=== PATIENT | male | born 1965 | race Caucasian/White ===

== ENCOUNTER 2017-08-08 13:00 | Observation (INO) | payer OTHER ==
[~2017-08-08] VITALS: Ht 165.1 cm; Wt 120.3 kg
[~2017-08-08 13:00] MED LIST: PHEN37.585 PO
[2017-08-08] MEDS ORDERED: SODIUM CHLORIDE 0.9% 1000ML 1,000 ML IV STA (13:27)
[2017-08-08 13:53] LABS: BASO % 0.4 %; BASO ABS # 0.03 K/uL (0-0.2); EOS ABS # 0.08 K/uL (0-0.5); HEMATOCRIT 40.2 % (42-52); HEMOGLOBIN 14.5 g/dL (14.0-18.0); IG# 0.03 K/uL (0.00-0.02); LYMPH % 26.7 %; LYMPH ABS # 2.08 K/uL (1.2-3.4); MEAN CELL VOLUME 94.6 fL (80-100); MEAN CORPUSCULAR HEMOGLOBIN 34.1 pg (25-34); MEAN CORPUSCULAR HGB CONC 36.1 g/dl (32-36); MEAN PLATELET VOLUME 10.6 fL (7.4-10.4); MONO % 5.9 %; MONO ABS # 0.46 K/uL (0.11-0.59); NEUT % 65.6 %; PLATELET COUNT 183 K/uL (130-400); RED CELL DISTRIBUTION WIDTH CV 12.7 % (11.5-14.5); RED CELL DISTRIBUTION WIDTH SD 43.3 fL (36.4-46.3); WHITE BLOOD COUNT 7.78 K/uL (4.8-10.8)
--- NOTE | 2017-08-08 13:56 | EMERGENCY ROOM VISIT NOTE ---
ED Visit Note First contact with patient: 13:15 I have seen and examined this patient with Pipe Hernandez and generally agree with the treatment plan as discussed.
[2017-08-08 14:11] LABS: ALBUMIN 3.9 gm/dl (3.4-5.0); ALT/SGPT 17 U/L (12-78); AST/SGOT 10 U/L (15-37); BLOOD UREA NITROGEN 16 mg/dl (7-18); CALCIUM 9.1 mg/dl (8.5-10.1); CARBON DIOXIDE 27 mmol/L (21-32); CREATININE 1.68 mg/dl (0.60-1.40); GLUCOSE 135 mg/dl (70-99); LIPASE 168 U/L (73-393); POTASSIUM 3.1 mmol/L (3.5-5.1); SODIUM 133 mmol/L (136-145)
[2017-08-08 14:13] LABS: ALKALINE PHOSPHATASE 91 U/L (45-117); TOTAL PROTEIN 7.7 gm/dl (6.4-8.2)
[2017-08-08] MEDS ORDERED: OPTIRAY 320 IV PRN (14:15)
--- NOTE | 2017-08-08 15:26 | DIAGNOSTIC IMAGING REPORT ---
CT OF THE ABDOMEN AND PELVIS WITH CONTRAST CLINICAL HISTORY: Umbilical pain with tenderness and swelling. COMPARISON STUDY: None. TECHNIQUE: Following IV administration of 70 mL of Optiray-320, axial images of the abdomen and pelvis were obtained from the lung bases to the proximal femurs. Images were reviewed in the axial, sagittal, and coronal planes. IV contrast was administered without complication. A dose lowering technique was utilized adhering to the principles of ALARA. CT DOSE: 1532.18 mGy.cm FINDINGS: Lunchroom Aide image demonstrates a possible 4.3 cm lobulated density within the right midlung. There is probable fatty infiltration of the liver. There is no biliary or pancreatic ductal dilatation. Note is made of a 1.3 cm cyst within the upper pole of the left kidney. There is no hydronephrosis. The spleen, adrenal glands and pancreas are normal. There is no evidence for a bowel obstruction. The appendix is normal. Note is made of a fat-containing umbilical hernia. There is moderate associated inflammation and fluid within the herniated omentum. No suspicious osseous lesions are present. There is no lymphadenopathy. IMPRESSION: 1. Findings consistent with an omentum/fat-containing strangulated umbilical hernia. Moderate inflammation and fluid of the herniated fat. 2. Possible 4.3 cm lobulated density within the right midlung. Follow-up PA and lateral chest radiographs are recommended. Findings discussed with Pipe Hernandez at time of dictation. Electronically signed by: Tyson Rene M.D. 08/08/2017 3:25 PM Dictated Date/Time: 08/08/2017 3:14 PM
--- NOTE | 2017-08-08 16:41 | DIAGNOSTIC IMAGING REPORT ---
CHEST 2 VIEWS ROUTINE HISTORY: Preop. COMPARISON: Abdomen and pelvis CT 08/08/2017. FINDINGS: 5.1 x 2.4 cm masslike opacity within the right upper lobe anteriorly. Mild volume loss within the right hemithorax. The left lung is clear. The heart is borderline enlarged. Posterior fusion hardware seen within the thoracic spine with old compression deformities within the mid thoracic spine. No pleural effusions. No pneumothorax. IMPRESSION: Confirmation of the 5.1 x 2.4 cm masslike opacity within the right upper lobe. This is concerning for a pulmonary lesion. Dedicated chest CT is recommended for further evaluation. Electronically signed by: Emerson Ramirez M.D. 08/08/2017 4:40 PM Dictated Date/Time: 08/08/2017 4:36 PM
[2017-08-08] MEDS ORDERED: LIDOCAINE HCL 2% 2 ML VIAL (20MG/ML) ONE (17:05)
[2017-08-08] MEDS ORDERED: GLYCOPYRROLATE INJ 0.2 MG/ML VIAL ONE ×2 (17:05→18:15)
[2017-08-08] MEDS ORDERED: ROCURONIUM BROMIDE 10 MG/ML 5 ML VIAL IV ONE (17:05)
[2017-08-08] MEDS ORDERED: PROPOFOL IV EMULSION 10 MG/ML 20 ML VIAL IV ONE (17:05)
[2017-08-08] MEDS ORDERED: NEOSTIGMINE METHYLSULFATE 5 MG/5 ML SYR ONE (17:05)
[2017-08-08] MEDS ORDERED: MIDAZOLAM HCL 1 MG/ML 2ML VIAL ONE (17:16)
[2017-08-08] MEDS ORDERED: FENTANYL CITRATE INJ 50 MCG/1 ML 2 ML VIAL ONE ×2 (17:16→18:05)
[2017-08-08] MEDS ORDERED: ATROPINE SULFATE 0.1 MG/ML 5ML SYR IV PRN (17:30)
[2017-08-08] MEDS ORDERED: FENTANYL CITRATE INJ 50 MCG/1 ML 2 ML VIAL IV PRN (17:30)
[2017-08-08] MEDS ORDERED: EpHEDrine SULFATE INJ 50 MG/ML AMP IV PRN (17:30)
[2017-08-08] MEDS ORDERED: ONDANSETRON INJ 2 MG/ML 2 ML VIAL IV PRN ×2 (17:30→19:00)
[2017-08-08] MEDS ORDERED: CEFAZOLIN SOD 2000MG/15 ML IV PUSH IV ONE (17:30)
--- NOTE | 2017-08-08 17:44 | Surgery Consultation ---
Consultation Date of Consultation: Aug 08, 2017. Attending Physician: History of Present Illness Chief Complaint: Abdominal pain. History of Present Illness: Mr. Zepeda is a 52 year-old white male who ambulates into the ED complaining of umbilical abdominal pain. Historically patient reports no gastrointestinal disorders or abdominal surgeries. Patient does report he has incomplete T3-T5 paraplegia with numbness starting at the nipple line to his feet. Patient reports a acute onset of umbilical abdominal pain that started approximately 16 hours ago. Patient reports last evening he was walking through his yard and felt a tearing sensation in the umbilical area. Since that time he reports he has been having a burning sensation in the abdomen. His pain has been constant since its onset. He rates his discomfort 7/10. His pain is nonradiating. He has not identified any aggravating or alleviating factors related to the pain. He has not taken any medication for pain prior to arrival at the hospital. Associated with his pain he has noted swelling within the umbilicus. He was referred to the ED by his PCP to evaluate for his symptoms. He denies any associated fevers, chills, sweats, skin eruptions, skin color changes, upper respiratory tract symptoms, shortness of breath, chest pain, nausea, vomiting, diarrhea, constipation, rectal bleeding, black/tarry stools, urinary symptoms, hematuria, back/flank pain. Review of Systems: As noted above in history of present illness. All body systems were reviewed and found to be negative as noted above. Past Medical History: As previously noted, unspecified urinary problems, thoracic back surgery and osteomyelitis. Current Medications: Patient denies. Allergies to Medications: Patient denies. Social History: Patient is not employed; he feels safe in his home environment; he denies tobacco and alcohol use. I reviewed pt 's H/P with pt, I agree with above statement. pt is still have periumbilical pain, with bulging , the mass is not reducible, pt denies fever, no diarrhea, Social History Smoking Status: Never Smoker Smokeless Tobacco Use: No Alcohol Use: occasionally Drug Use: none Allergies Coded Allergies: No Known Allergies (Unverified , 08/08/17) Home Medications Unable to Obtain Active Prescriptions or Reported Meds Current Inpatient Medications Current Inpatient Medications Medications (Trade) Dose Ordered Sig/Arlen Route Start Time Stop Time Status Last Admin Dose Admin Sodium Chloride 1,000 ml @ 200 mls/hr Q5H STAT IV 08/08/17 13:27 08/08/17 18:26 08/08/17 13:42 200 MLS/HR Ioversol (Optiray 320) 125 ml UD PRN IV 08/08/17 14:15 08/12/17 14:14 Fentanyl Citrate (Fentanyl Inj) 50 mcg Q5M PRN IV 08/08/17 17:30 08/08/17 22:30 Ondansetron HCl (Zofran Inj) 4 mg ONE PRN IV 08/08/17 17:30 08/08/17 22:30 Ephedrine Sulfate (EpHEDrine SULFATE INJ) 5 mg Q5M PRN IV 08/08/17 17:30 08/08/17 22:30 Atropine Sulfate (Atropine Sulfate 0.1mg/ml Inj) 0.5 mg Q1M PRN IV 08/08/17 17:30 08/08/17 22:30 Review of Systems Constitutional: No fever, No chills, No sweats, No weight loss, No weakness, No fatigue, No problem reported Eyes: No worsening of vision, No eye pain, No redness, No discharge, No diplopia, No problem reported ENT: No hearing loss, No unusual epistaxis, No nasal symptoms, No sore throat, No tinnitus, No dental problems, No trouble swallowing, No problem reported Respiratory: No cough, No sputum, No wheezing, No shortness of breath, No dyspnea on exertion, No dyspnea at rest, No hemoptysis, No problem reported Cardiovascular: No chest pain, No orthopnea, No PND, No edema, No claudication , No palpitations, No problem reported Abdomen: + pain, + nausea Musculoskeletal: + problem reported (incomplete T3-T5 paraplegia with numbness starting at the nipple line to his feet.) Genitourinary - Male: No hematuria, No dysuria, No urinary frequency, No urinary urgency, No urinary hesitancy, No urinary retention, No urinary incontinence, No penile discharge, No lesions, No impotence, No problem reported Neurologic: + problem reported (incomplete T3-T5 paraplegia with numbness starting at the nipple line to his feet.) Endocrine: No fatigue, No excessive thirst, No excessive urination, No problem reported Hematologic / Lymphatic: No abnormal bleeding/bruising, No clotting problems, No swollen lymph nodes, No night sweats, No problem reported Integumentary: No rash, No itch, No new/changing skin lesions, No color change , No bleeding, No problem reported Physical Exam Date Time Temp Pulse Resp B/P (MAP) Pulse Ox O2 Delivery O2 Flow Rate FiO2 08/08/17 17:26 36.5 83 16 155/97 (116) 97 Room Air 08/08/17 17:02 76 08/08/17 16:28 81 18 159/97 97 Room Air 08/08/17 13:44 82 20 164/101 95 08/08/17 13:41 83 08/08/17 13:11 37.1 90 16 143/90 97 Room Air General Appearance: WD/WN, no apparent distress Head: normocephalic Eyes: normal inspection ENT: normal ENT inspection Neck: supple, no JVD Respiratory/Chest: chest non-tender, lungs clear, normal breath sounds, no respiratory distress Cardiovascular: regular rate, rhythm, no edema, no gallop, no JVD, no murmur Abdomen/GI: normal bowel sounds, + tenderness (at umbilical area, some redness on skin color), + hernia (incarcerated umbilical hernai, which is not reducible , ) Extremities/Musculoskelatal: normal inspection, no calf tenderness, + pertinent finding (weakness on bilt legs) Neurologic/Psych: no motor/sensory deficits, alert, normal mood/affect, oriented x 3 Skin: normal color, warm/dry, no rash Laboratory Results Last 24 Hours Test 08/08/17 13:40 08/08/17 14:55 White Blood Count 7.78 K/uL Red Blood Count 4.25 M/uL Hemoglobin 14.5 g/dL Hematocrit 40.2 % Mean Corpuscular Volume 94.6 fL Mean Corpuscular Hemoglobin 34.1 pg Mean Corpuscular Hemoglobin Concent 36.1 g/dl Platelet Count 183 K/uL Mean Platelet Volume 10.6 fL Neutrophils (%) (Auto) 65.6 % Lymphocytes (%) (Auto) 26.7 % Monocytes (%) (Auto) 5.9 % Eosinophils (%) (Auto) 1.0 % Basophils (%) (Auto) 0.4 % Neutrophils # (Auto) 5.10 K/uL Lymphocytes # (Auto) 2.08 K/uL Monocytes # (Auto) 0.46 K/uL Eosinophils # (Auto) 0.08 K/uL Basophils # (Auto) 0.03 K/uL RDW Standard Deviation 43.3 fL RDW Coefficient of Variation 12.7 % Immature Granulocyte % (Auto) 0.4 % Immature Granulocyte # (Auto) 0.03 K/uL Sodium Level 133 mmol/L Potassium Level 3.1 mmol/L Chloride Level 101 mmol/L Carbon Dioxide Level 27 mmol/L Anion Gap 5.0 mmol/L Blood Urea Nitrogen 16 mg/dl Creatinine 1.68 mg/dl Est Creatinine Clear Calc Drug Dose 61.2 ml/min Estimated GFR () 53.0 Estimated GFR (Non- 45.7 BUN/Creatinine Ratio 9.6 Random Glucose 135 mg/dl Calcium Level 9.1 mg/dl Total Bilirubin 0.5 mg/dl Direct Bilirubin < 0.1 mg/dl Aspartate Amino Transf (AST/SGOT) 10 U/L Alanine Aminotransferase (ALT/SGPT) 17 U/L Alkaline Phosphatase 91 U/L Total Protein 7.7 gm/dl Albumin 3.9 gm/dl Lipase 168 U/L Urine Color YELLOW Urine Appearance CLEAR Urine pH 7.0 Urine Specific [place] 1.012 Urine Protein NEG Urine Glucose (UA) NEG Urine Ketones NEG Urine Occult Blood NEG Urine Nitrite NEG Urine Bilirubin NEG Urine Urobilinogen NEG Urine Leukocyte Esterase NEG Assessment & Plan CT scan-FINDINGS: Gifted Program Teacher image demonstrates a possible 4.3 cm lobulated density within the right midlung. There is probable fatty infiltration of the liver. There is no biliary or pancreatic ductal dilatation. Note is made of a 1.3 cm cyst within the upper pole of the left kidney. There is no hydronephrosis. The spleen, adrenal glands and pancreas are normal. There is no evidence for a bowel obstruction. The appendix is normal. Note is made of a fat-containing umbilical hernia. There is moderate associated inflammation and fluid within the herniated omentum. No suspicious osseous lesions are present. There is no lymphadenopathy. IMPRESSION: 1. Findings consistent with an omentum/fat-containing strangulated umbilical hernia. Moderate inflammation and fluid of the herniated fat. 2. Possible 4.3 cm lobulated density within the right midlung. Follow-up PA and lateral chest radiographs are recommended. Findings discussed with Pipe Hernandez at time of dictation. Assessment: pt is a 52 nikkie old male who presents to ER with 17 hours periumbilical pain, CT scan- incarcerated umbilical hernia, IMP: incarcerated umbilical hernia Plan: I recommend to do open repair umbilical hernia, possible with mesh, D/W benefits, risk and alternatives of the procedure, the risks -infection, bleeding , hernia recurrence, complications relate to mesh, DVT, SC, stroke , pt understood, he agrees with [facility], I answered all questions,
--- NOTE | 2017-08-08 17:45 | History & Physical Bridge Note ---
H&P Re-Evaluation Bridge Note: I have examined the patient, reviewed the History & Physical and in the interval since the performance of the History & Physical I have noted the following changes of clinical significance: No changes noted
[2017-08-08] MEDS ORDERED: BUPIVACAINE 0.5 % 5 MG/1 ML MPF 30ML VIAL ONE (18:09)
[2017-08-08] MEDS ORDERED: LIDOCAINE HCL 1% 20 ML VIAL ONE (18:10)
[2017-08-08] MEDS ORDERED: BACITRACIN OINT 15 GM TUBE ONE (18:10)
[2017-08-08] MEDS ORDERED: DEXAMETHASONE SOD INJ 4 MG/ML VIAL ONE (18:13)
[2017-08-08] MEDS ORDERED: ONDANSETRON INJ 2 MG/ML 2 ML VIAL ONE (18:13)
--- NOTE | 2017-08-08 18:57 | [facility] Post Operative Brief Note ---
Immediate Operative Summary Operative Date Aug 08, 2017. Pre-Operative Diagnosis incarcerated umbilical hernia Post-Operative Diagnosis same Procedure(s) Performed open repair of incarcerated umbilical hernia, with mesh Surgeon Dr. Eleno Esposito Nursing Tech Surgeon(s) surgical consultant Estimated Blood Loss 10ml Findings Consistent with Post-Op Diagnosis incarcerated umbilical hernia, hernia size is 2x2cm, Fluids (cc crystalloids) 600ml Specimens A. umbilical hernia sac (permanent) Drains None Anesthesia Type General Complication(s) none Disposition Accompanied Pt To Recover: yes Disposition: Recovery Room / PACU
[2017-08-08] MEDS ORDERED: OXYCODONE/ACETAMINOPHEN 5-325 TAB PO PRN (19:00)
[2017-08-08] MEDS ORDERED: HYDROmorphone INJ 2 MG/ML SYR/VIAL IV PRN (19:00)
[2017-08-08] MEDS ORDERED: ACETAMINOPHEN 325 MG TAB PO PRN (19:00)
[2017-08-08] MEDS ORDERED: IV FLUIDS COMPLETED PRN (19:15)
--- NOTE | 2017-08-08 19:42 | Anesthesiology Progress Note ---
Anesthesia Post Op Note Date & Time Aug 08, 2017 at 19:41 Vital Signs Pain Intensity: 4 Vital Signs Past 12 Hours Date Time Temp Pulse Resp B/P (MAP) Pulse Ox O2 Delivery O2 Flow Rate FiO2 08/08/17 19:35 81 16 127/93 92 Nasal Cannula 2 08/08/17 19:25 81 25 127/82 99 Oxymask 10 08/08/17 19:15 36.2 87 17 146/90 99 Oxymask 10 08/08/17 17:26 36.5 83 16 155/97 (116) 97 Room Air 08/08/17 17:02 76 08/08/17 16:28 81 18 159/97 97 Room Air 08/08/17 13:44 82 20 164/101 95 08/08/17 13:41 83 08/08/17 13:11 37.1 90 16 143/90 97 Room Air Notes Mental Status: alert / awake / arousable, participated in evaluation Pt Amnestic to Procedure: Yes Nausea / Vomiting: adequately controlled Pain: adequately controlled Airway Patency, RR, SpO2: stable & adequate BP & HR: stable & adequate Hydration State: stable & adequate Anesthetic Complications: see attached progress note
--- NOTE | 2017-08-08 19:49 | Anesthesiology Progress Note ---
Anesthesia Progress Note Date of Service Aug 08, 2017. Progress Notes The patient underwent an incarcerated hernia repair under general anesthesia. The patient was known to have poor dentition and multiple broken teeth. During insertion of the Archie blade, part of his L front tooth was broken. The tooth fragment was retrieved. The rest of his kassy-operative course was uneventful. When the patient was more awake in the PACU, I spoke with the patient about his tooth being broken during intubation. The patient was aware of his poor dentition and was not upset. The patient was otherwise stable for discharge to the floor.
[2017-08-08 20:00] VITALS: BP 144/90; PULSE 70; TEMP 36.7; O2SAT 94; Ht 165.1 cm; Wt 120.3 kg
[2017-08-08] MEDS ORDERED: D5W AND 1/2NSS + 20MEQ KCL 1,000 ML IV SCH (20:30)
[2017-08-08 20:42] VITALS: BP 145/98; PULSE 72; TEMP 36.6; O2SAT 94
[2017-08-08 21:15] VITALS: BP 146/96; PULSE 78; TEMP 36.7; O2SAT 96
[2017-08-08] MEDS: CEFAZOLIN IV 2,000 MG in SYRINGE 0 ML IV SCH (21:18)
--- NOTE | 2017-08-08 21:42 | OPERATIVE REPORT ---
DATE OF OPERATION: 08/08/2017 PREOPERATIVE DIAGNOSIS: Incarcerated umbilical hernia. POSTOPERATIVE DIAGNOSIS: Same. PROCEDURE: Open repair of incarcerated umbilical hernia with mesh. SURGEON: Roseann Esposito MD ANESTHESIA: General. ESTIMATED BLOOD LOSS: About 10 mL. FINDINGS: Incarcerated umbilical hernia. The hernia size is about 2 x 2 cm. COMPLICATIONS: None. INDICATIONS FOR THE PROCEDURE: This is a 52-year-old gentleman who presented to the ED with 17 hours of umbilical pain with bulging mass and the patient was diagnosed as incarcerated umbilical hernia. Patient required open repair of umbilical hernia, possibly with mesh. I did talk to patient about benefits, risks, and alternatives to procedure. I indicated the risks may include, but not limited, such as bleeding, infection, hernia recurrence, myocardial infarction, DVT, stroke, even , seroma. Patient understands. He signed informed consent and I answered all questions. DETAILS OF PROCEDURE: We brought the patient to the OR and put the patient on the supine position. Patient received SCDs on bilateral legs to prevent DVT. Also, patient received 2 grams Ancef IV for prophylactic antibiotics. Patient received general anesthesia without difficulty. The patient's abdomen was prepped and draped in routine sterile fashion. After time-out, I made a small incision just below the umbilicus and reached to the fascial layer. Patient had incarcerated umbilical hernia. The hernia is not reducible at this moment. Once we opened the hernia neck and then completely mobilized the umbilicus, we completely removed the hernia sac and returned the hernia contents and the omental fat back to abdominal cavity. No necrosis on the omental fat. Then once we removed the umbilical hernia sac and resized the hernia neck about 2 x 2 cm, I decided to use 4.3 x 4.3 cm mesh to repair the hernia. Then I used a #1 Ethibond to suture the mesh around 360 degrees intraoperatively. I tied off the suture. The mesh seated nicely, no tension. Hemostasis was obtained. We closed the subcutaneous layer by using 2-0 Vicryl interruptedly. We closed skin by using staple and we put a dressing on. The patient tolerated the procedure well. All the instrument, needle, and sponge counts were correct x2 at the end of the case. The hernia sac was sent to pathology. After procedure, the patient transferred to recovery room in stable condition. After procedure, I did talk to patient's family member, patient's brother, about OR findings and the procedure we did. He understands. Also, after procedure we did an injection of local anesthesia medication by using 1% lidocaine mixed with 0.5% Marcaine around the incision. I attest to the content of the Intraoperative Record and any orders documented therein. Any exceptions are noted below. DEJUAN
[2017-08-08] MEDS ORDERED: NURSING VERBAL MED ORDER ONE (22:00)
[2017-08-08] MEDS ORDERED: OXYCODONE HCL IR 5 MG TAB (IMMEDIATE RELEASE) ONE (22:01)
[2017-08-08 22:11] VITALS: BP 137/90; PULSE 77; TEMP 36.8; O2SAT 94
[2017-08-08] MEDS ORDERED: OXYCODONE HCL IR 5 MG TAB (IMMEDIATE RELEASE) PO PRN (22:15)
[2017-08-08 22:59] VITALS: BP 131/85; PULSE 85; TEMP 36.6; O2SAT 93
[2017-08-09 03:34] VITALS: BP 114/74; PULSE 74; TEMP 36.4; O2SAT 96
[2017-08-09] MEDS ORDERED: CEFAZOLIN SOD 2000MG/15 ML IV PUSH IV ONE (06:00)
[2017-08-09] MEDS: CEFAZOLIN IV 2,000 MG in SYRINGE 0 ML IV SCH (06:10)
[2017-08-09] MEDS ORDERED: NURSING VERBAL MED ORDER ONE (06:30)
[2017-08-09 06:58] LABS: BASO % 0.1 %; BASO ABS # 0.01 K/uL (0-0.2); HEMATOCRIT 44.1 % (42-52); IG# 0.05 K/uL (0.00-0.02); LYMPH % 14.7 %; LYMPH ABS # 2.21 K/uL (1.2-3.4); MEAN CELL VOLUME 95.2 fL (80-100); MEAN CORPUSCULAR HEMOGLOBIN 34.6 pg (25-34); MEAN CORPUSCULAR HGB CONC 36.3 g/dl (32-36); MEAN PLATELET VOLUME 11.3 fL (7.4-10.4); MONO % 2.7 %; MONO ABS # 0.41 K/uL (0.11-0.59); NEUT % 82.2 %; NEUT ABS # 12.33 K/uL (1.4-6.5); PLATELET COUNT 253 K/uL (130-400); RED CELL DISTRIBUTION WIDTH CV 12.7 % (11.5-14.5); RED CELL DISTRIBUTION WIDTH SD 43.5 fL (36.4-46.3); WHITE BLOOD COUNT 15.01 K/uL (4.8-10.8)
[2017-08-09 07:07] LABS: INR 0.9 (0.9-1.1); PTT PATIENT 24.7 SECONDS (21.0-31.0)
[2017-08-09 07:40] VITALS: O2SAT 96
[2017-08-09] MEDS ORDERED: GABAPENTIN 100 MG CAP PO SCH (08:00)
[2017-08-09] MEDS ORDERED: BACLOFEN 10 MG TAB PO SCH (08:00)
[2017-08-09 08:01] VITALS: BP 146/85; PULSE 92; TEMP 36.7; O2SAT 92
[2017-08-09] MEDS ORDERED: POTASSIUM CHLORIDE 10 MEQ TABCR PO ONE ×2 (08:15)
[2017-08-09] MEDS ORDERED: OXYC-57 PO (08:29)
--- NOTE | 2017-08-09 08:37 | Discharge Instructions ---
Discharge Instructions Date of Service Aug 09, 2017. Admission Reason for Admission: Incarcerated Umbilical Hernia Discharge Discharge Diagnosis / Problem: same Discharge Goals Goal(s): Decrease discomfort, Improve function Activity Recommendations Activity Limitations: per Instructions/Follow-up section No heavy lifting over 10 pounds for 4-6 weeks No strenuous activity until cleared by surgeon No submerging incision underwater for 2 weeks (no bathing, swimming, or hot tubs ) No driving while taking narcotic pain medication or until you are pain free . Instructions / Follow-Up Instructions / Follow-Up You may shower in 3 days, sponge bath and wash hair in meantime. Leave dressing on for 3 days and then remove. Try to keep dressing clean and dry. After 3 days, remove outer dressing and shower. You have surgical helga on incision, cover daily with small bandage. Helga can get caught on clothing. Wear abdominal binder daily for support, you may take it off at bedtime if you wish. You will be given narcotic pain medication to take as needed for moderate to severe pain. This medication may make you drowsy and can cause constipation. To combat constipation, drink plenty of water, you may take OTC stool softener such as Colace, gentle laxative, or prune juice if needed. You may take extra strength Tylenol or Ibuprofen as needed for mild pain. Follow-up in surgical office in 1-2 weeks, please call office at [phone] to make an appointment. You need to follow-up with your PCP in 1 week, there was a finding of a 4.3 cm density in your right mid lung on CT scan of the abdomen and Chest xray in which further evaluation with Chest CT scan was recommended. Recommend following up with Dentist in regards to tooth loss. Current Hospital Diet Patient's current hospital diet: Full Liquid Diet Discharge Diet Recommended Diet: Regular Diet Procedures Procedures Performed: open repair of incarcerated umbilical hernia, with mesh Pending Studies Studies pending at discharge: no Medical Emergencies . Who to Call and When: Medical Emergencies: If at any time you feel your situation is an emergency, please call 911 immediately. . Non-Emergent Contact Non-Emergency issues call your: Primary Care Provider, Surgeon Call Non-Emergent contact if: you have a fever, temperature is above 101, your pain is not controlled, your pain is worsening, your pain is unusual for you, wound has increased drainage, wound has increased redness, wound has increased pain . "Provider Documentation" section prepared by Doretha Jenkins. . [place] Drug Monitoring Program Search Results: patient reviewed within database, no issues identified
[2017-08-09 08:40] LABS: ALBUMIN 3.7 gm/dl (3.4-5.0); CALCIUM 8.8 mg/dl (8.5-10.1); CREATININE 1.88 mg/dl (0.60-1.40); POTASSIUM 3.6 mmol/L (3.5-5.1)
--- NOTE | 2017-08-09 08:41 | Anesthesiology Progress Note ---
Anesthesia Post Op Note Date & Time Aug 09, 2017 at 08:39 Vital Signs Pain Intensity: 7.0 Vital Signs Past 12 Hours Date Time Temp Pulse Resp B/P (MAP) Pulse Ox O2 Delivery O2 Flow Rate FiO2 08/09/17 08:01 36.7 92 16 146/85 (105) 92 Room Air 08/09/17 07:40 96 Room Air 08/09/17 03:34 36.4 74 20 114/74 (87) 96 Room Air 08/08/17 23:05 Room Air 08/08/17 22:59 36.6 85 18 131/85 (100) 93 Room Air 08/08/17 22:11 36.8 77 18 137/90 (106) 94 Nasal Cannula 2.0 08/08/17 21:15 36.7 78 18 146/96 (113) 96 Room Air 08/08/17 20:42 36.6 72 18 145/98 (114) 94 Nasal Cannula 2.0 Notes Mental Status: alert / awake / arousable, participated in evaluation Pt Amnestic to Procedure: Yes Nausea / Vomiting: adequately controlled Pain: adequately controlled Airway Patency, RR, SpO2: stable & adequate BP & HR: stable & adequate Hydration State: stable & adequate Anesthetic Complications: no major complications apparent Patient states he has 2 missing teeth post-anesthesia....will follow-up.
[2017-08-09 08:44] LABS: TOTAL PROTEIN 7.8 gm/dl (6.4-8.2)
[2017-08-09] MEDS ORDERED: ENOXAPARIN 40 MG/0.4 ML SYR SQ SCH (09:00)
[2017-08-09] MEDS ORDERED: HYDROCHLOROTHIAZIDE 25 MG TAB PO SCH (09:00)
[2017-08-09] MEDS ORDERED: BuPROPion SR 150 MG TABCR PO SCH (09:00)
--- NOTE | 2017-08-09 09:41 | EMERGENCY ROOM VISIT NOTE ---
ED Visit Note First contact with patient: 13:15 Chief Complaint: Abdominal pain. History of Present Illness: Mr. Zepeda is a 52 year-old white male who ambulates into the ED complaining of umbilical abdominal pain. Historically patient reports no significant gastrointestinal disorders and no previous abdominal surgeries. Patient reports he had a small umbilical hernia that has always been nonpainful. Then last night he reports he was walking through his yard and started having an escalation of pain in the umbilical area where his hernia was present. He does not remember any specific event that started the onset of his pain; he was not straining or lifting any material. He reports since the onset of his pain his discomfort has been constant. He describes it as a burning sensation. He rates his discomfort 7/10. His pain is nonradiating. His pain worsens with movements primarily flexion of the abdomen and palpation. He has not identified any alleviating factors related to the pain. He has not had a medication for pain prior to arrival at the hospital. He denies any fevers, chills, sweats, skin eruptions, skin color changes, upper respiratory tract symptoms, shortness of breath, chest pain, nausea, vomiting, diarrhea, constipation, rectal bleeding, black/tarry stools, urinary symptoms, hematuria, back/flank pain. Review of Systems: As noted above in history of present illness. All body systems were reviewed and found to be negative as noted above. 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 Current Medications: Patient denies. Allergies to Medications: Patient denies. Social History: Patient is currently on disability; he feels safe in his home environment; he denies tobacco use. Physical Examination: Vital Signs: Date Time Temp Pulse Resp B/P (MAP) Pulse Ox O2 Delivery O2 Flow Rate FiO2 08/08/17 17:26 36.5 83 16 155/97 (116) 97 Room Air 08/08/17 17:02 76 08/08/17 16:28 81 18 159/97 97 Room Air 08/08/17 13:44 82 20 164/101 95 08/08/17 13:41 83 08/08/17 13:11 37.1 90 16 143/90 97 Room Air GENERAL: 52-year-old female in mild to moderate distress due to pain, nontoxic- appearing, afebrile and hemodynamically stable. NEUROLOGICAL: Awake, alert and oriented to person, place and time. Answering questions appropriately and following commands. Good hand eye coordination. SKIN: Warm, dry and pink. No soft tissue eruptions or trauma noted. HEENT: Atraumatic and normocephalic. PERRLA. Sclera white and conjunctiva pink. Pharynx is nonerythematous or edematous. Speech normal. No lymphadenopathy. Trachea midline. No jugular venous distention. BACK: No tenderness over the bony spine. No CVA tenderness. THORAX: Lungs sounds are clear to auscultation and equal bilaterally with symmetrical chest wall. No wheezing, rales or rhonchi. No crepitus, tenderness , subcutaneous air or deformities noted. HEART: Regular rate and rhythm. No gallops, rubs or murmurs are appreciated. ABDOMEN: Obese and soft with moderate tenderness in the periumbilical area. There is some mild swelling and erythema in the periumbilical area but the skin does not appear cellulitic. There is a palpable hernia which was not reducible. Decreased bowel sounds in all quadrants. No guarding, rigidity or organomegaly. EXTREMITIES: Moves all extremities well on command and with purpose. All distal neurovascular statuses are intact and equal bilaterally. ED Course: Patient is assessed as noted above. Patient's medication list was reviewed. Laboratory Testing: Test 08/08/17 13:40 08/08/17 14:55 Range/Units White Blood Count 7.78 4.8-10.8 K/uL Red Blood Count 4.25 4.7-6.1 M/uL Hemoglobin 14.5 14.0-18.0 g/dL Hematocrit 40.2 42-52 % Mean Corpuscular Volume 94.6 80-100 fL Mean Corpuscular Hemoglobin 34.1 25-34 pg Mean Corpuscular Hemoglobin Concent 36.1 32-36 g/dl Platelet Count 183 130-400 K/uL Mean Platelet Volume 10.6 7.4-10.4 fL Neutrophils (%) (Auto) 65.6 % Lymphocytes (%) (Auto) 26.7 % Monocytes (%) (Auto) 5.9 % Eosinophils (%) (Auto) 1.0 % Basophils (%) (Auto) 0.4 % Neutrophils # (Auto) 5.10 1.4-6.5 K/uL Lymphocytes # (Auto) 2.08 1.2-3.4 K/uL Monocytes # (Auto) 0.46 0.11-0.59 K/uL Eosinophils # (Auto) 0.08 0-0.5 K/uL Basophils # (Auto) 0.03 0-0.2 K/uL RDW Standard Deviation 43.3 36.4-46.3 fL RDW Coefficient of Variation 12.7 11.5-14.5 % Immature Granulocyte % (Auto) 0.4 % Immature Granulocyte # (Auto) 0.03 0.00-0.02 K/uL Sodium Level 133 136-145 mmol/L Potassium Level 3.1 3.5-5.1 mmol/L Chloride Level 101 98-107 mmol/L Carbon Dioxide Level 27 21-32 mmol/L Anion Gap 5.0 3-11 mmol/L Blood Urea Nitrogen 16 7-18 mg/dl Creatinine 1.68 0.60-1.40 mg/dl Est Creatinine Clear Calc Drug Dose 61.2 ml/min Estimated GFR () 53.0 Estimated GFR (Non- 45.7 BUN/Creatinine Ratio 9.6 10-20 Random Glucose 135 70-99 mg/dl Calcium Level 9.1 8.5-10.1 mg/dl Total Bilirubin 0.5 0.2-1 mg/dl Direct Bilirubin < 0.1 0-0.2 mg/dl Aspartate Amino Transf (AST/SGOT) 10 15-37 U/L Alanine Aminotransferase (ALT/SGPT) 17 12-78 U/L Alkaline Phosphatase 91 45-117 U/L Total Protein 7.7 6.4-8.2 gm/dl Albumin 3.9 3.4-5.0 gm/dl Lipase 168 73-393 U/L Urine Color YELLOW Urine Appearance CLEAR CLEAR Urine pH 7.0 4.5-7.5 Urine Specific Meredith 1.012 1.000-1.030 Urine Protein NEG NEG Urine Glucose (UA) NEG NEG Urine Ketones NEG NEG Urine Occult Blood NEG NEG Urine Nitrite NEG NEG Urine Bilirubin NEG NEG Urine Urobilinogen NEG NEG Urine Leukocyte Esterase NEG NEG Noncontrast Abdominal/Pelvic CT: Was reviewed by myself and read by the radiologist was reviewed by myself and read by the radiologist showing findings consistent with an omentum/fat-containing strangulated umbilical hernia with moderate inflammation and fluid in the herniated fat. Radiologist also notes a possible 4.3 lobulated density within the right middle lung. Preop Chest X-Ray: Was reviewed by myself and read by the radiologist showing a 5.1 x 2.4 cm masslike opacity in the right upper lobe concerning for a primary pulmonary lesion. Preop EKG: Was read by myself and shows normal sinus rhythm with a ventricular rate of 79 bpm. Normal axis, intervals and complexes. There T-wave inversion in lead III but this is not present in leads II and aVF. No previous EKGs for comparison Patient was hydrated with normal saline and he was offered pain medication multiple times and refused. Patient was reassessed multiple times during her stay in the emergency department. Patient's case was reviewed with Dr. Brown; we agreed on diagnostic approach , treatment, disposition and plan. Patient's case was consulted with Ms. Quan, general surgery for surgical evaluation. I did not independently speak to Dr. Esposito but he was taken to surgery for reduction of his hernia. She was educated about today's findings. Clinical Impression: Strangulated umbilical hernia. Primary right upper lobe mass. Decision-Makin-year-old male with complaints of umbilical pain with swelling and palpable mass. Patient does report he has had a small umbilical hernia for many years and has had no complications. The abdominal exam shows marked tenderness in the umbilical area without guarding. There is mild erythema and swelling in this area. Laboratory tests were unremarkable. His CT does find a strangulated hernia. His preop x-ray did show a primary mass in the right upper lobe of questionable etiology and he had a normal EKG. Initially my differential diagnosis I considered strangulated hernia, constipation, appendicitis and other causes. Disposition and Plan: He should be taken to the operating room for surgical correction of his strangulated hernia; please see the orders and notes by Dr. Esposito and Ms. Quan for continued care and treatment.
[2017-08-09 10:22] VITALS: BP 146/85; PULSE 92; TEMP 36.7; O2SAT 92
--- NOTE | 2017-08-09 12:05 | Surgery Progress Note ---
Surgery Progress Note Date of Service Aug 09, 2017. Subjective Post OP Day: 1 (repair of incarcerated umbilical hernia) States he is ready to go home. Pain mild, controlled Tolerated full liquids passing flatus and bm Per nursing staff is persistent on leaving before noon today or he will leave ama Objective Vital Signs: Date Time Temp Pulse Resp B/P (MAP) Pulse Ox O2 Delivery O2 Flow Rate FiO2 08/09/17 08:01 36.7 92 16 146/85 (105) 92 Room Air 08/09/17 07:40 96 Room Air 08/09/17 03:34 36.4 74 20 114/74 (87) 96 Room Air 08/08/17 23:05 Room Air 08/08/17 22:59 36.6 85 18 131/85 (100) 93 Room Air 08/08/17 22:11 36.8 77 18 137/90 (106) 94 Nasal Cannula 2.0 08/08/17 21:15 36.7 78 18 146/96 (113) 96 Room Air 08/08/17 20:42 36.6 72 18 145/98 (114) 94 Nasal Cannula 2.0 08/08/17 20:00 94 Nasal Cannula 2.0 08/08/17 20:00 Nasal Cannula 2.0 08/08/17 20:00 36.7 70 16 144/90 (108) 94 Nasal Cannula 2.0 08/08/17 19:55 36.3 75 12 129/97 95 Nasal Cannula 2 08/08/17 19:45 77 13 135/83 92 Nasal Cannula 2 08/08/17 19:35 81 16 127/93 92 Nasal Cannula 2 08/08/17 19:25 81 25 127/82 99 Oxymask 10 08/08/17 19:15 36.2 87 17 146/90 99 Oxymask 10 08/08/17 17:26 36.5 83 16 155/97 (116) 97 Room Air 08/08/17 17:02 76 08/08/17 16:28 81 18 159/97 97 Room Air 08/08/17 13:44 82 20 164/101 95 08/08/17 13:41 83 08/08/17 13:11 37.1 90 16 143/90 97 Room Air General Appearance: WD/WN, no apparent distress Head: normocephalic, atraumatic Neck: trachea midline Respiratory/Chest: no respiratory distress, no accessory muscle use Abdomen: non distended, soft, no organomegaly, no pulsatile mass, + tenderness (appropriate post op at incision site) Incision(s): clean, dry (dressing clean and dry incision not inspected) Laboratory Results: Results Past 24 Hours Test 08/08/17 13:40 08/08/17 14:55 08/09/17 06:21 Range/Units White Blood Count 7.78 15.01 4.8-10.8 K/uL Red Blood Count 4.25 4.63 4.7-6.1 M/uL Hemoglobin 14.5 16.0 14.0-18.0 g/dL Hematocrit 40.2 44.1 42-52 % Mean Corpuscular Volume 94.6 95.2 80-100 fL Mean Corpuscular Hemoglobin 34.1 34.6 25-34 pg Mean Corpuscular Hemoglobin Concent 36.1 36.3 32-36 g/dl Platelet Count 183 253 130-400 K/uL Mean Platelet Volume 10.6 11.3 7.4-10.4 fL Neutrophils (%) (Auto) 65.6 82.2 % Lymphocytes (%) (Auto) 26.7 14.7 % Monocytes (%) (Auto) 5.9 2.7 % Eosinophils (%) (Auto) 1.0 0.0 % Basophils (%) (Auto) 0.4 0.1 % Neutrophils # (Auto) 5.10 12.33 1.4-6.5 K/uL Lymphocytes # (Auto) 2.08 2.21 1.2-3.4 K/uL Monocytes # (Auto) 0.46 0.41 0.11-0.59 K/uL Eosinophils # (Auto) 0.08 0.00 0-0.5 K/uL Basophils # (Auto) 0.03 0.01 0-0.2 K/uL RDW Standard Deviation 43.3 43.5 36.4-46.3 fL RDW Coefficient of Variation 12.7 12.7 11.5-14.5 % Immature Granulocyte % (Auto) 0.4 0.3 % Immature Granulocyte # (Auto) 0.03 0.05 0.00-0.02 K/uL Sodium Level 133 134 136-145 mmol/L Potassium Level 3.1 3.6 3.5-5.1 mmol/L Chloride Level 101 100 98-107 mmol/L Carbon Dioxide Level 27 24 21-32 mmol/L Anion Gap 5.0 9.0 3-11 mmol/L Blood Urea Nitrogen 16 18 7-18 mg/dl Creatinine 1.68 1.88 0.60-1.40 mg/dl Est Creatinine Clear Calc Drug Dose 61.2 54.6 ml/min Estimated GFR () 53.0 46.2 Estimated GFR (Non- 45.7 39.9 BUN/Creatinine Ratio 9.6 9.4 10-20 Random Glucose 135 162 70-99 mg/dl Calcium Level 9.1 8.8 8.5-10.1 mg/dl Total Bilirubin 0.5 0.5 0.2-1 mg/dl Direct Bilirubin < 0.1 0-0.2 mg/dl Aspartate Amino Transf (AST/SGOT) 10 31 15-37 U/L Alanine Aminotransferase (ALT/SGPT) 17 33 12-78 U/L Alkaline Phosphatase 91 130 45-117 U/L Total Protein 7.7 7.8 6.4-8.2 gm/dl Albumin 3.9 3.7 3.4-5.0 gm/dl Lipase 168 73-393 U/L Urine Color YELLOW Urine Appearance CLEAR CLEAR Urine pH 7.0 4.5-7.5 Urine Specific [place] 1.012 1.000-1.030 Urine Protein NEG NEG Urine Glucose (UA) NEG NEG Urine Ketones NEG NEG Urine Occult Blood NEG NEG Urine Nitrite NEG NEG Urine Bilirubin NEG NEG Urine Urobilinogen NEG NEG Urine Leukocyte Esterase NEG NEG Prothrombin Time 9.5 9.0-12.0 SECONDS Prothromb Time International Ratio 0.9 0.9-1.1 Activated Partial Thromboplast Time 24.7 21.0-31.0 SECONDS Partial Thromboplastin Ratio 1.0 Globulin 4.1 2.5-4.0 gm/dl Albumin/Globulin Ratio 0.9 0.9-2 Assessment & Plan POD # 1 s/p repair of incarcerated umbilical hernia -vitals stable - pain controlled CXR concerning Right mid lung mass, per patient this is chronic and not new. 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 Plan: Discharge home today Discharge instructions reviewed f/u 1-2 weeks Rx for Percocet given
--- NOTE | 2017-08-13 10:21 | Discharge Summary ---
Discharge Summary Dates Admission Date / Time: Aug 08, 2017 at 19:01 Discharge Date: Aug 09, 2017 Dispostion / Condition Discharge Disposition: Home Condition at Discharge: Good Principal Diagnosis (1) Incarcerated umbilical hernia Consultations / Procedures Consultations: None Procedures: Open repair of incarcerated umbilical hernia Vaccinations: none Pending Studies / Follow-Up Hernia sac pathology, will be reviewed at follow up visit Medication Reconciliation New Medications: Oxycodone/Acetaminophen 5MG/325MG (Percocet 5MG/325MG) Tab 1 TABLET PO Q4H PRN for Pain, #18 TAB Admission HPI Per the Admitting provider: Patient reports a acute onset of umbilical abdominal pain that started approximately 16 hours ago. Patient reports last evening he was walking through his yard and felt a tearing sensation in the umbilical area. Since that time he reports he has been having a burning sensation in the abdomen. His pain has been constant since its onset. He rates his discomfort 7/10. His pain is nonradiating. He has not identified any aggravating or alleviating factors related to the pain. He has not taken any medication for pain prior to arrival at the hospital. Associated with his pain he has noted swelling within the umbilicus. He was referred to the ED by his PCP to evaluate for his symptoms. He denies any associated fevers, chills, sweats, skin eruptions, skin color changes, upper respiratory tract symptoms, shortness of breath, chest pain, nausea, vomiting, diarrhea, constipation, rectal bleeding, black/tarry stools, urinary symptoms, hematuria, back/flank pain. Hospital Course (1) Incarcerated umbilical hernia Patient was taken to operating room for open incarcerated umbilical hernia repair. Patient found to have incarcerated umbilical hernia about 2 x 2 cm. Mesh was used in the procedure. Patient tolerated procedure well without any complications. Patient was transferred to recovery and then to medical/ surgical floor for post operative care. Iv fluids, IV pain medication with po Percocet prn pain, IV Zofran prn nausea, activity as tolerated, clear liquid diet, and SCDs. Patient evaluated on POD # 1 in stable condition, vitals stable. Patient was ready to go home. Per nursing staff was very angry and agitated due to losing a tooth during intubation and was going to leave by noon if he was no discharged before hand. Pain controlled, tolerated diet, passing flatus, no nausea or vomiting. Patient wearing his own abdominal binder for support. No other issues. Patient discharged home in stable condition on POD # 1. Discharge Instructions as given to patient Copies To Primary Care Provider: Coco Zamarripa D.O..
== END 2017-08-09 11:14 | disposition home or self-care (01) ==
LOC: C.EDB 13:02 → C.MSN 19:01 → ENRESERV 19:36
PROVIDERS: ADMIT Surgery; ATTEND Surgery
DX: K42.0 Umbilical hernia with obstruction, without gangrene (principal); G82.22 Paraplegia, incomplete; M86.9 Osteomyelitis, unspecified; E66.9 Obesity, unspecified; Z68.41 Body mass index [BMI] 40.0-44.9, adult; Z87.01 Personal history of pneumonia (recurrent); Z91.040 Latex allergy status; Z91.018 Allergy to other foods